=== PATIENT | female | born 1930 | race Caucasian/White ===

== ENCOUNTER 2017-01-04 11:45 | Outpatient (CLI) | payer OTHER ==
--- NOTE | 2017-01-04 12:42 | DIAGNOSTIC IMAGING REPORT ---
PROCEDURE: XR CHEST 2 VIEW INDICATION: EDEMA/DEMENTIA/WEIGHTLOSS TECHNIQUE: PA and lateral views. COMPARISON: None. FINDINGS: Cardiomegaly and bilateral pleural effusions. Torturous vessels and granulomas in the superior mediastinum. IMPRESSION: 1. CHF
== END 2017-01-04 23:00 ==
LOC: LAB SRH 11:45
DX: I50.9 Heart failure, unspecified (principal); F03.90 Unspecified dementia, unspecified severity, without behavioral disturbance, psychotic disturbance, mood disturbance, and anxiety; R63.4 Abnormal weight loss

== ENCOUNTER 2017-01-13 09:06 | Outpatient (CLI) | payer OTHER | END 2017-01-13 23:00 | LOC: LAB SRH 09:06 | DX: R60.0 Localized edema (principal); F03.90 Unspecified dementia, unspecified severity, without behavioral disturbance, psychotic disturbance, mood disturbance, and anxiety; R63.4 Abnormal weight loss | CPT/HCPCS: 90074; 90100; 91320; 92720; 93140; 95059 ==